=== PATIENT | male | born 1965 | race Caucasian/White ===

== ENCOUNTER 2023-05-23 03:43 | Emergency (ER) | payer MEDICAID ==
[~2023-05-23] VITALS: Ht 170.2 cm; Wt 83.9 kg
[2023-05-23] MEDS ORDERED: diphenhydrAMINE HCL 50 MG/ML VIAL ONE (04:53)
[2023-05-23] MEDS ORDERED: FAMOTIDINE/PF INJ 20 MG/2 ML VIAL IV ONE (04:53)
[2023-05-23] MEDS ORDERED: METOCLOPRAMIDE HCL 10 MG/2 ML VIAL ONE (04:53)
[2023-05-23] MEDS: diphenhydrAMINE HCL 50 MG/ML VIAL IV ONE (05:12)
[2023-05-23] MEDS: METOCLOPRAMIDE HCL 10 MG/2 ML VIAL IV ONE (05:13)
[2023-05-23] MEDS: FAMOTIDINE/PF INJ 20 MG/2 ML VIAL IV ONE (05:13)
[2023-05-23] MEDS: IV NS 0.9% 1,000 ML BAG IV ONE (05:13)
[2023-05-23 05:28] LABS: BASOPHILS % (AUTO) 0.4 % (0.0-2.0); EOSINOPHILS % (AUTO) 0.4 % (0.0-6.0); HEMATOCRIT 46 % (39-51); HEMOGLOBIN 15.2 g/dL (13.5-17.5); LYMPHOCYTES # (AUTO) 1.1 K/uL (0.8-4.8); LYMPHOCYTES % (AUTO) 11.4 % (20.0-44.0); MEAN CORPUSCULAR HEMOGLOBIN 28 PG (26.0-33.0); MEAN CORPUSCULAR HGB CONC 33 g/dl (31.0-36.0); MEAN CORPUSCULAR VOLUME 83 fL (80-96); MONOCYTES # (AUTO) 0.4 K/uL (0.1-1.30); MONOCYTES % (AUTO) 4.2 % (2.0-12.0); NEUTROPHILS # (AUTO) 8.5 K/uL (1.8-8.9); NEUTROPHILS % (AUTO) 83.6 % (43.0-81.0); PLATELET COUNT (AUTO) 294 K/uL (150-450); RED BLOOD CELL COUNT(AUTO) 5.47 MIL/uL (4.5-6.0); RED CELL DISTRIBUTION WIDTH 14.6 % (11.5-15.0); WHITE BLOOD COUNT (AUTO) 10.1 K/uL (4.3-11.0)
[2023-05-23 05:44] LABS: CALCIUM, SERUM 9.4 mg/dL (8.5-10.1); CARBON DIOXIDE 25 mmol/L (21-32); CHLORIDE 102 mmol/L (98-107); GLUCOSE 141 mg/dL (74-106); POTASSIUM 3.8 mmol/L (3.5-5.1); SODIUM SERUM 138 mmol/L (136-145); UREA NITROGEN, BLOOD 29 mg/dL (7-18)
[2023-05-23 05:57] LABS: ALANINE AMINOTRANSFERASE 50 U/L (12-78); ALBUMIN 4.2 g/dL (3.4-5.0); ALKALINE PHOSPHATASE 56 U/L (46-116); ASPARTATE AMINOTRANSFERASE 25 U/L (15-37); BILIRUBIN,DIRECT 0.1 mg/dL (0.0-0.2); BILIRUBIN,TOTAL 0.7 mg/dL (0.2-1.0); NT-PRO BNP 109 pg/mL (0-125)
[2023-05-23] MEDS ORDERED: IBUP-1955 PO (07:53)
[2023-05-23] MEDS ORDERED: dexaMETHasone SOD PHOSPHATE 1 ML ONE (07:55)
[2023-05-23] MEDS: dexaMETHasone SOD PHOSPHATE 10 MG/ML VIAL IV ONE (07:55)
[2023-05-23] MEDS ORDERED: KETOROLAC TROMETHAMINE 15 MG/ML VIAL ONE (07:55)
[2023-05-23] MEDS: KETOROLAC TROMETHAMINE 15 MG/ML VIAL IV ONE (07:58)
[2023-05-23 08:00] VITALS: BP 145/89; TEMP 98.1; O2SAT 99
== END 2023-05-23 08:00 | disposition home or self-care (01) ==
LOC: ER 03:47
DX: R51.9 Headache, unspecified (principal); I10 Essential (primary) hypertension; J45.909 Unspecified asthma, uncomplicated
CPT/HCPCS: 99285; 96374; 96375; 70450; 71045; 96361; 93005; 85025; 80048; 80076; 36415; 84484; 83880; J1100; J1200; J3490; J2765; J7030; J1885